=== PATIENT | female | born 1975 | race Asian ===

== ENCOUNTER → 2016-09-18 | Outpatient (CLI) | payer OTHER ==
[~2016-09-18] MED LIST: IBUP600 PO; OXYC1SOL5 PO; PERI8.6T PO; PRENCAP6 PO
--- NOTE | 2016-09-18 10:47 | RADRPT ---
EXAM DATE/TIME: 09/18/2016 10:16 [facility] COMPARISON: No previous studies available for comparison. INDICATIONS : Enlarged thyroid. MEDICAL HISTORY : Gestational diabetes. GERD. SURGICAL HISTORY : section. Laparoscopy. ENCOUNTER: Initial ACUITY: 1 day PAIN SCORE: 0/10 LOCATION: Bilateral neck MEASUREMENTS: RIGHT LOBE: 4.8 x 1.8 x 1.3 cm LEFT LOBE: 4.8 x 1.7 x 1.2 cm FINDINGS: The isthmus is normal in size. The right lobe is unremarkable. There is a single nodule in the left l obe of thyroid measuring 3 mm in the upper pole. CONCLUSION: 1. 3 mm nodule left lobe of thyroid. Jeff Johnson MD on September 18, 2016 at 10:39 Board Certified Radiologist. This report was verified electronically.
--- NOTE | 2016-09-18 11:00 | RADRPT ---
EXAM DATE/TIME: 09/18/2016 09:58 [facility] COMPARISON: No previous studies available for comparison. INDICATIONS : Abdominal pain. MEDICAL HISTORY : Gestational diabetes. GERD. SURGICAL HISTORY : section. Laparoscopy. ENCOUNTER: Initial ACUITY: > 1 year PAIN SCORE: 2/10 LOCATION: Bilateral upper quadrant MEASUREMENTS: LIVER: 15.5 cm length COMMON DUCT: 5 mm RIGHT KIDNEY: 9.8 x 4.6 x 4.9 cm LEFT KIDNEY: 10.5 x 3.7 x 5.1 cm SPLEEN: 8.1 cm length AORTA: 1.6cm maximal FINDINGS: LIVER: Normal echotexture without focal lesion or ductal dilatation. COMMON DUCT: No intraluminal mass or stone visualized. GALLBLADDER: Contains no stones, demonstrates no wall thickening or pericholecystic fluid. PANCREAS: The visualized portions are within normal limits. RIGHT KIDNEY: No hydronephrosis, stone or mass. LEFT KIDNEY: No hydronephrosis, stone or mass. SPLEEN: No focal lesion. AORTA: Non aneurysmal. IVC: Within normal limits. CONCLUSION: Unremarkable ultrasound of the upper abdomen. Robel Leggett MD FACR on September 18, 2016 at 10:58 Board Certified Radiologist. This report was verified electronically.
--- NOTE | 2016-09-18 11:02 | RADRPT ---
EXAM DATE/TIME: 09/18/2016 09:49 [facility] COMPARISON: No previous studies available for comparison. INDICATIONS : Irregular periods. MEDICAL HISTORY : Gestational diabetes. GERD. SURGICAL HISTORY : section. Laparoscopy. ENCOUNTER: Initial ACUITY: > 1 year PAIN SCORE: 2/10 LOCATION: Bilateral pelvis MEASUREMENTS: UTERUS: 9.9 x 6.3 x 4.4 cm ENDOMETRIAL STRIPE: 5 mm RIGHT OVARY: 4.2 x 1.8 x 1.3 cm LEFT OVARY: 1.9 x 1.3 x 1.9 cm FINDINGS: UTERUS: The myometrium has homogeneous echotexture without mass. RIGHT OVARY: Ovary contains no mass or significant cystic lesion. LEFT OVARY: Ovary contains no mass or significant cystic lesion. MISCELLANEOUS: No free fluid. CONCLUSION: 1. Unremarkable ultrasound examination of the pelvis. Jeff Johnson MD on September 18, 2016 at 11:00 Board Certified Radiologist. This report was verified electronically.
== END ==
LOC: HRAD 09:04
DX: N92.6 Irregular menstruation, unspecified (principal); R10.9 Unspecified abdominal pain; E01.0 Iodine-deficiency related diffuse (endemic) goiter
CPT/HCPCS: 76536; 76700; 76856

== ENCOUNTER → 2016-09-30 | Outpatient (CLI) | payer OTHER ==
--- NOTE | 2016-09-30 12:47 | RADRPT ---
EXAM DATE/TIME: 09/30/2016 12:23 [facility] COMPARISON: No previous studies available for comparison. INDICATIONS : Positive PPD. MEDICAL HISTORY : None. SURGICAL HISTORY : None. ENCOUNTER: Initial ACUITY: 1 day PAIN SCORE: 0/10 LOCATION: Bilateral chest FINDINGS: PA and lateral views of the chest demonstrate the lungs to be symmetrically aerated without evidence of mass, infiltrate or effusion. The cardiomediastinal contours are unremarkable. Osseous structure s are intact. CONCLUSION: Normal examination. Soren Chaidez MD on September 30, 2016 at 12:46 Board Certified Radiologist. This report was verified electronically.
== END ==
LOC: HRAD 11:59
PROVIDERS: ATTEND Family Medicine
DX: R76.12 Nonspecific reaction to cell mediated immunity measurement of gamma interferon antigen response without active tuberculosis (principal)
CPT/HCPCS: 71020

== ENCOUNTER → 2016-10-29 | Outpatient (CLI) | payer OTHER | LOC: HRAD 12:55 | DX: E04.1 Nontoxic single thyroid nodule (principal) ==

== ENCOUNTER → 2017-05-08 | Outpatient (CLI) | payer OTHER ==
--- NOTE | 2017-05-08 11:41 | RADRPT ---
EXAM DATE/TIME: 05/08/2017 10:58 [facility] COMPARISON: No previous studies available for comparison. INDICATIONS : Headache for the last three month RADIATION DOSE: 56.77 CTDIvol (mGy) MEDICAL HISTORY : None SURGICAL HISTORY : None. ENCOUNTER: Initial ACUITY: 3 months PAIN SCALE: 5/10 LOCATION: distal TECHNIQUE: Multiple contiguous axial images were obtained of the head. Using automated exposure control and adj ustment of the mA and/or kV according to patient size, radiation dose was kept as low as reasonably a chievable to obtain optimal diagnostic quality images. DICOM format image data is available electro nically for review and comparison. FINDINGS: CEREBRUM: The ventricles are normal for age. No evidence of midline shift, mass lesion, hemorrhage or acute in farction. No extra-axial fluid collections are seen. POSTERIOR FOSSA: The cerebellum and brainstem are intact. The 4th ventricle is midline. The cerebellopontine angle i s unremarkable. EXTRACRANIAL: The visualized portion of the orbits is intact. SKULL: The calvaria is intact. No evidence of skull fracture. CONCLUSION: No acute disease. Dylon Steve MD on May 08, 2017 at 11:39 Board Certified Radiologist. This report was verified electronically.
--- NOTE | 2017-05-08 11:42 | RADRPT ---
EXAM DATE/TIME: 05/08/2017 10:46 [facility] COMPARISON: No previous studies available for comparison. INDICATIONS : Left shoulder pain. MEDICAL HISTORY : None. SURGICAL HISTORY : None. ENCOUNTER: Initial ACUITY: 1 month PAIN SCORE: 10/10 LOCATION: Left lower chest FINDINGS: Multiple view examination of the left shoulder demonstrates no evidence of fracture or dislocation. The glenohumeral and acromioclavicular joints are maintained. There is normal range of motion betwee n internal and external rotation. Bony mineralization is normal. CONCLUSION: No acute disease. Dylon Steve MD on May 08, 2017 at 11:40 Board Certified Radiologist. This report was verified electronically.
--- NOTE | 2017-05-08 11:43 | RADRPT ---
EXAM DATE/TIME: 05/08/2017 10:48 [facility] COMPARISON: No previous studies available for comparison. INDICATIONS : Left humerus pain. MEDICAL HISTORY : None. SURGICAL HISTORY : None. ENCOUNTER: Initial ACUITY: 1 month PAIN SCORE: 10/10 LOCATION: Left lateral humerus. FINDINGS: Two view examination of the left humerus demonstrates no evidence of fracture or dislocation. Bony m ineralization is normal. The soft tissue structures are intact. CONCLUSION: No acute disease. Dylon Steve MD on May 08, 2017 at 11:41 Board Certified Radiologist. This report was verified electronically.
--- NOTE | 2017-05-08 11:44 | RADRPT ---
EXAM DATE/TIME: 05/08/2017 10:52 [facility] COMPARISON: No previous studies available for comparison. INDICATIONS : Right knee pain. MEDICAL HISTORY : None. SURGICAL HISTORY : None. ENCOUNTER: Initial ACUITY: 2 months PAIN SCORE: 10/10 LOCATION: Right lateral knee. FINDINGS: Four view examination of the right knee demonstrates no evidence of fracture or dislocation. Bony mi neralization is normal. The articular surfaces are intact. The suprapatellar soft tissues have a no rmal configuration. CONCLUSION: No acute disease. Dylon Steve MD on May 08, 2017 at 11:42 Board Certified Radiologist. This report was verified electronically.
== END ==
LOC: HRAD 10:23
DX: M79.602 Pain in left arm (principal); M25.569 Pain in unspecified knee; R51 Headache
CPT/HCPCS: 70450; 73030; 73060; 73564

== ENCOUNTER → 2017-08-27 | Outpatient (CLI) | payer OTHER ==
[~2017-08-27] MED LIST changes: +IOHEXOL 350 MG/ML 10 ML VIAL (for RAD DIAG) IVCONTRAST ONE
--- NOTE | 2017-08-27 15:43 | RADRPT ---
EXAM DATE/TIME: 08/27/2017 15:17 [facility] COMPARISON: CT BRAIN W/O CONTRAST, May 08, 2017, 10:58. INDICATIONS : Gammaherpesviral mononucleosis IV CONTRAST: 90 cc Omnipaque 350 (iohexol) IV ORAL CONTRAST: Prescribed oral contrast ingested. RADIATION DOSE: 10.50 CTDIvol (mGy) MEDICAL HISTORY : None SURGICAL HISTORY : None. ENCOUNTER: Initial ACUITY: 1 day PAIN SCALE: 0/10 LOCATION: anterior TECHNIQUE: Volumetric scanning of the abdomen and pelvis was performed. Using automated exposure control and ad justment of the mA and/or kV according to patient size, radiation dose was kept as low as reasonably achievable to obtain optimal diagnostic quality images. DICOM format image data is available electro nically for review and comparison. FINDINGS: LOWER LUNGS: The visualized lower lungs are clear. LIVER: Homogeneous density without lesion. There is no dilation of the biliary tree. No calcified gallston es. SPLEEN: Normal size without lesion. PANCREAS: Within normal limits. KIDNEYS: Normal in size and shape. There is no mass, stone or hydronephrosis. ADRENAL GLANDS: Within normal limits. VASCULAR: There is no aortic aneurysm. BOWEL/MESENTERY: The stomach, small bowel, and colon demonstrate no acute abnormality. There is no free intraperitone al air or fluid. ABDOMINAL WALL: Within normal limits. RETROPERITONEUM: There is no lymphadenopathy. BLADDER: No wall thickening or mass. REPRODUCTIVE: Examination demonstrates a 4.8 x 6.4 cm cyst arising from the left ovary. The reproductive organs are otherwise intact. INGUINAL: There is no lymphadenopathy or hernia. MUSCULOSKELETAL: Within normal limits for patient age. CONCLUSION: 1. There is a 4.8 x 6.5 cm cystic lesion arising from the left ovary. Followup ultrasound to ensure t his resolves is warranted. This is indeterminate in appearance by CT. Kieran Leggett MD on August 27, 2017 at 15:38 Board Certified Radiologist. This report was verified electronically.
== END ==
LOC: HRAD 13:59
DX: B27.09 Gammaherpesviral mononucleosis with other complications (principal)
CPT/HCPCS: 74177; Q9967

== ENCOUNTER → 2017-12-18 | Outpatient (CLI) | payer OTHER ==
[~2017-12-18] MED LIST changes: -IOHEXOL 350 MG/ML 10 ML VIAL (for RAD DIAG) IVCONTRAST ONE; +METOCLOPRAMIDE HCL 10 MG/2 ML VIAL ONE
--- NOTE | 2017-12-18 13:12 | RADRPT ---
EXAM DATE: 12/18/2017 1:06 PM EDT AGE/SEX: 42 years / Female INDICATIONS: Nausea. CLINICAL DATA: This is the patient's initial encounter. Patient reports that signs and symptoms have been present for 1 day and indicates a pain score of 0/10. MEDICAL/SURGICAL HISTORY: None. section. COMPARISON: No prior exams available for comparison. No external comparison. DOSE: 1.1 mCi Tc99m Sulfur Colloid Labeled Whole Egg PO MEDICATION: 5 mg Reglan IV at at 93minutes. minutes. IMAGING TIME: 2 hr TECHNIQUE: Following the oral ingestion of radiotracer-labeled meal, dynamic sequential images in the [id number] projection were acquired with simultaneous computer acquisition. The data set was decay-correcte d. FINDINGS: Lag Phase: There is prompt onset of gastric emptying. Emptying: Gastric emptying kinetics are linear. The decay-corrected, back-extrapolated half-time of emptying is 45 minutes. (Normal for this lab is 45 - 90 minutes) Intervention: Remainder of the gastric contents empty after IV Reglan CONCLUSION: 1. Normal gastric emptying half-time and kinetics. Electronically signed by: Orville Louise MD 12/18/2017 1:11 PM EDT
== END ==
LOC: HRAD 09:12
PROVIDERS: ATTEND Internal Medicine Gastroenterology
DX: R11.0 Nausea (principal)
CPT/HCPCS: 78264; A9541; J2765